=== PATIENT | female | born 1950 | race Caucasian/White ===

== ENCOUNTER → 2016-10-01 | Outpatient (CLI) | payer BC ==
[~2016-10-01] MED LIST: ALLEGRA 180MG180 MG PO; ALLEGRA ALLERG180 MG PO; DOVONEX0.005% TP; DYAZIDE 25 MG-31 CAP PO; FASTIN30 MG PO; HCTZ; HCTZ 25MG TAB25 MG PO; L-Thyroxine; LEVOXYL0.05 MG PO; LEVOXYL0.075 MG PO; LOTENSIN40 MG PO; NASONEX SPRAY17 GM NS; PHENTERMINE15 MG; PROVIGIL200 MG PO; TOPAMAX 25MG25 M1 PO; VITAMIN D1000 IU PO; [UNRECOGNIZED DRUG - OTHER]
== END ==
LOC: MC.RAD 08:39
DX: Z12.31 Encounter for screening mammogram for malignant neoplasm of breast (principal); Z80.3 Family history of malignant neoplasm of breast

== ENCOUNTER → 2017-05-22 | Outpatient (CLI) | payer BC ==
[~2017-05-22] VITALS: Ht 154.9 cm; Wt 152.6 kg
[2017-05-22 15:27] VITALS: BP 140/70; PULSE 100
== END ==
LOC: LIGHT 11:11
DX: E88.81 Metabolic syndrome and other insulin resistance (principal); I10 Essential (primary) hypertension; E66.01 Morbid (severe) obesity due to excess calories; Z68.44 Body mass index [BMI] 60.0-69.9, adult; Z71.3 Dietary counseling and surveillance; G47.33 Obstructive sleep apnea (adult) (pediatric)

== ENCOUNTER → 2017-07-03 | Outpatient (CLI) | payer BC ==
[~2017-07-03] VITALS: Ht 154.9 cm; Wt 152.4 kg
[2017-07-03 16:14] VITALS: BP 138/62; PULSE 84
== END ==
LOC: LIGHT 12:49
DX: E88.81 Metabolic syndrome and other insulin resistance (principal); I10 Essential (primary) hypertension; E66.01 Morbid (severe) obesity due to excess calories; Z68.44 Body mass index [BMI] 60.0-69.9, adult; Z71.3 Dietary counseling and surveillance; G47.33 Obstructive sleep apnea (adult) (pediatric)
CPT/HCPCS: G0463

== ENCOUNTER → 2017-08-07 | Outpatient (CLI) | payer BC ==
[~2017-08-07] VITALS: Ht 154.9 cm; Wt 152.0 kg
[2017-08-07 15:14] VITALS: BP 168/80; PULSE 92
== END ==
LOC: LIGHT 09:14
DX: E88.81 Metabolic syndrome and other insulin resistance (principal); I10 Essential (primary) hypertension; E66.01 Morbid (severe) obesity due to excess calories; Z68.44 Body mass index [BMI] 60.0-69.9, adult; Z71.3 Dietary counseling and surveillance; G47.33 Obstructive sleep apnea (adult) (pediatric)
CPT/HCPCS: G0463

== ENCOUNTER → 2017-09-04 | Outpatient (CLI) | payer MEDICARE ==
[~2017-09-04] VITALS: Ht 154.9 cm; Wt 150.1 kg
[2017-09-04 15:34] VITALS: BP 130/72; PULSE 104
== END ==
LOC: LIGHT 09:51
DX: E88.81 Metabolic syndrome and other insulin resistance (principal); I10 Essential (primary) hypertension; E66.01 Morbid (severe) obesity due to excess calories; Z68.44 Body mass index [BMI] 60.0-69.9, adult; Z71.3 Dietary counseling and surveillance; G47.33 Obstructive sleep apnea (adult) (pediatric)
CPT/HCPCS: G0463

== ENCOUNTER → 2017-10-09 | Outpatient (CLI) | payer MEDICARE ==
[~2017-10-09] VITALS: Ht 154.9 cm; Wt 150.4 kg
[2017-10-09 15:06] VITALS: BP 128/70; PULSE 96
== END ==
LOC: LIGHT 09:33
DX: E88.81 Metabolic syndrome and other insulin resistance (principal); I10 Essential (primary) hypertension; E66.01 Morbid (severe) obesity due to excess calories; Z68.44 Body mass index [BMI] 60.0-69.9, adult; Z71.3 Dietary counseling and surveillance; G47.33 Obstructive sleep apnea (adult) (pediatric)
CPT/HCPCS: G0463

== ENCOUNTER → 2017-10-21 | Outpatient (CLI) | payer MEDICARE | LOC: MC.RAD 10:51 | DX: Z12.31 Encounter for screening mammogram for malignant neoplasm of breast (principal); N63.10 Unspecified lump in the right breast, unspecified quadrant ==

== ENCOUNTER → 2017-10-29 | Outpatient (CLI) | payer MEDICARE | LOC: MC.RAD 09:00 | DX: N63.13 Unspecified lump in the right breast, lower outer quadrant (principal) ==

== ENCOUNTER → 2018-01-15 | Outpatient (CLI) | payer MEDICARE ==
[~2018-01-15] VITALS: Ht 154.9 cm; Wt 152.4 kg
[2018-01-15 16:40] VITALS: BP 128/70; PULSE 80
== END ==
LOC: LIGHT 11:25
DX: E88.81 Metabolic syndrome and other insulin resistance (principal); I10 Essential (primary) hypertension; E66.01 Morbid (severe) obesity due to excess calories; Z68.44 Body mass index [BMI] 60.0-69.9, adult; Z71.3 Dietary counseling and surveillance; G47.33 Obstructive sleep apnea (adult) (pediatric)

== ENCOUNTER → 2018-02-26 | Outpatient (CLI) | payer MEDICARE ==
[~2018-02-26] VITALS: Ht 154.9 cm; Wt 150.6 kg
[2018-02-26 15:06] VITALS: BP 140/72; PULSE 60
== END ==
LOC: LIGHT 15:01
DX: E88.81 Metabolic syndrome and other insulin resistance (principal); I10 Essential (primary) hypertension; G47.33 Obstructive sleep apnea (adult) (pediatric); E66.01 Morbid (severe) obesity due to excess calories; Z68.43 Body mass index [BMI] 50.0-59.9, adult; Z71.3 Dietary counseling and surveillance
CPT/HCPCS: G0463

== ENCOUNTER → 2018-04-02 | Outpatient (CLI) | payer MEDICARE, BC ==
[~2018-04-02] VITALS: Ht 154.9 cm; Wt 150.8 kg
[2018-04-02 15:12] VITALS: BP 134/64; PULSE 100
== END ==
LOC: LIGHT 15:06
DX: E88.81 Metabolic syndrome and other insulin resistance (principal); I10 Essential (primary) hypertension; G47.33 Obstructive sleep apnea (adult) (pediatric); E66.01 Morbid (severe) obesity due to excess calories; Z68.44 Body mass index [BMI] 60.0-69.9, adult; Z71.3 Dietary counseling and surveillance
CPT/HCPCS: G0463

== ENCOUNTER → 2018-04-27 | Outpatient (CLI) | payer MEDICARE, BC | LOC: MC.RAD 08:30 | DX: N64.89 Other specified disorders of breast (principal) | CPT/HCPCS: G0279 ==

== ENCOUNTER → 2018-11-04 | Outpatient (CLI) | payer MEDICARE, BC | LOC: MC.RAD 12:30 | DX: R92.2 Inconclusive mammogram (principal) | CPT/HCPCS: G0279 ==

== ENCOUNTER → 2020-02-15 | Outpatient (CLI) | payer MEDICARE, BC | LOC: MC.RAD 10:00 | DX: Z12.31 Encounter for screening mammogram for malignant neoplasm of breast (principal) ==

== ENCOUNTER → 2021-03-13 | Outpatient (CLI) | payer MEDICARE, BC | LOC: MC.RAD 13:30 | DX: Z12.31 Encounter for screening mammogram for malignant neoplasm of breast (principal) ==

== ENCOUNTER → 2022-03-14 | Outpatient (CLI) | payer MEDICARE, BC | LOC: MC.RAD 11:01 | DX: Z12.31 Encounter for screening mammogram for malignant neoplasm of breast (principal) ==